=== PATIENT | male | born 1960 | race Caucasian/White ===

== ENCOUNTER 2017-01-28 17:16 | Emergency (ER) | payer OTHER ==
[2017-01-28] MEDS ORDERED: ASPIRIN ONE (17:28)
[2017-01-28] MEDS ORDERED: ASPIRIN PO STA (18:00)
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
[2017-01-28 18:14] LABS: MANUAL DIFF NEEDED? NO
[2017-01-28 18:19] LABS: BASO% 0.2 % (0.0-0.8); EOS# 0.04 X1000 (0.0-0.7); EOS% 0.6 % (0.0-10.0); HEMATOCRIT 45.8 % (42.0-52.0); IMM GRAN# 0.01 X1000 (0.0-0.04); IMM GRAN% 0.2 % (0.0-0.5); LYMPH# 0.62 X1000 (1.2-3.4); LYMPH% 9.7 % (20.5-51.1); MCH 32.5 PG (27-31); MCHC 32.8 g/dL (33-37); MCV 99.3 FL (81-99); MONO# 0.67 X1000 (0.11-0.59); MONO% 10.5 % (1.7-9.3); MPV 11.3 FL (7.4-10.4); NEUT% 78.8 % (42.2-75.2); PLT 139 X1000 (130-400); RBC 4.61 XMIL (4.7-6.1)
[2017-01-28 18:31] LABS: AGAP 18; ALBUMIN 4.5 g/dL (3.5-5.0); ALKALINE PHOSPHATASE 97 U/L (32-122); BUN 19 mg/dL (8-22); CALCIUM 9.7 mg/dL (8.8-10.2); CHLORIDE 95 mmol/L (98-107); CK PROFILE 117 U/L (24-204); COSMO 273; GOT 99 U/L (10-34); GPT 36 U/L (10-44); INR 1.07 (0.86-1.15); MAGNESIUM 1.6 mg/dL (1.5-2.7); POTASSIUM 3.6 mmol/L (3.5-5.1); PROTIME 14.2 Seconds (12.1-15.5); SODIUM 136 mmol/L (136-145); TCO2 23 mmol/L (25-35); TOTAL PROTEIN 7.6 g/dL (6.3-8.3)
[2017-01-28 18:32] LABS: PTT PL 30.7 Seconds (22.6-43.9)
--- NOTE | 2017-01-28 18:58 | EKG Report ---
Test Performed on : 01/28/2017 6:46:42 PM Test Reason : CHEST PAIN Blood Pressure : / mmHG Vent. Rate : 095 BPM Atrial Rate : 095 BPM P-R Int : 130 ms QRS Dur : 082 ms QT Int : 354 ms P-R-T Axes : 017 -04 008 degrees QTc Int : 444 ms Normal sinus rhythm. Possible Left atrial enlargement Left ventricular hypertrophy Nonspecific ST abnormality Abnormal ECG No previous ECGs available Unconfirmed Result
[2017-01-28 18:59] LABS: UR AMPHETAMINES QUAL NONE DETECTED (NONE DETECT); UR BARBITUATES QUAL NONE DETECTED (NONE DETECT); UR BENZODIAZEPIN QUAL NONE DETECTED (NONE DETECT); UR CANNABINOIDS QUAL NONE DETECTED (NONE DETECT); UR COCAINE QUAL NONE DETECTED (NONE DETECT); UR MDMA QUAL NONE DETECTED (NONE DETECT); UR METHADONE QUAL NONE DETECTED (NONE DETECT); UR METHAMPHETAMINE QUAL NONE DETECTED (NONE DETECT); UR OPIATES QUAL NONE DETECTED (NONE DETECT); UR OXYCODONE QUAL NONE DETECTED (NONE DETECT); UR PCP QUAL NONE DETECTED (NONE DETECT); UR TCA QUAL NONE DETECTED (NONE DETECT)
[2017-01-28 19:00] LABS: URINE SOURCE CLEAN CATCH
[2017-01-28 19:04] LABS: BILIRUBIN URINE 2+ (NEGATIVE); BLOOD URINE NEGATIVE (NEGATIVE); CLARITY SL. CLOUDY (CLEAR); GLUCOSE URINE NEGATIVE (NEGATIVE); LEUKOCYTES URINE 1+ (NEGATIVE); NITRITE URINE POSITIVE (NEGATIVE); PH URINE 6.5; PROTEIN URINE 2+(100 mg/dL) mg/dL (NEGATIVE); SP GRAVITY URINE 1.015
[2017-01-28] MEDS ORDERED: ROCEPHIN 1 GM/NS 50 ML IV ONE (19:09)
[2017-01-28] MEDS ORDERED: LABETALOL IV ONE (19:10)
[2017-01-28 19:30] LABS: COLOR ORANGE; URINE CAST NONE SEEN /LPF; URINE CRYSTAL NONE SEEN /HPF; URINE CULTURE PL NEEDED? YES; URINE EPITHELIAL CELLS >10 /HPF (<10); URINE RBC <10 /HPF (<10); URINE WBC <10 /HPF (<10); UROBILINOGEN URINE 4+(12 mg/dL)
[2017-01-28] MEDS ORDERED: LOPRESSOR IV ONE (19:30)
--- NOTE | 2017-01-28 20:11 | EKG Report ---
Test Performed on : 01/28/2017 8:01:10 PM Test Reason : cp Blood Pressure : / mmHG Vent. Rate : 068 BPM Atrial Rate : 068 BPM P-R Int : 138 ms QRS Dur : 080 ms QT Int : 400 ms P-R-T Axes : 036 005 010 degrees QTc Int : 425 ms Normal sinus rhythm. Normal ECG When compared with ECG of 28-JAN-2017 18:46, (Unconfirmed) No significant change was found Unconfirmed Result
[2017-01-28 21:18] VITALS: BP 143/87
--- NOTE | 2017-01-29 09:41 | Diag Imaging Result Document ---
PROCEDURE NAME: CHEST-2 VIEWS - 01/28/2017 CHEST, TWO VIEWS: INDICATION: Chest pain. COMPARISON: No comparison studies. FINDINGS: The heart size is within normal limits. The pulmonary vasculature is not congested. No acute infiltrates or effusions are identified. There is an old healed left clavicle fracture. IMPRESSION: No acute cardiopulmonary abnormality is appreciated. No acute abnormalities.
== END 2017-01-28 20:50 | disposition home or self-care (01) ==
LOC: P.ED 17:16
DX: N39.0 Urinary tract infection, site not specified (principal); R07.89 Other chest pain; R94.31 Abnormal electrocardiogram [ECG] [EKG]; R53.1 Weakness; R61 Generalized hyperhidrosis; R06.02 Shortness of breath; R53.83 Other fatigue; M79.1 Myalgia; R42 Dizziness and giddiness; M25.552 Pain in left hip; M25.551 Pain in right hip; K42.9 Umbilical hernia without obstruction or gangrene; I10 Essential (primary) hypertension; E78.5 Hyperlipidemia, unspecified
CPT/HCPCS: 71020; 80053; 80305; 81001; 82550; 83735; 83880; 84484; 85025; 85379; 85610; 85730; 87088; 93005; 96365; 96375; G0480; J0696; 80320